=== PATIENT | female | born 1995 ===

== ENCOUNTER 2017-05-03 19:39 | Emergency (ER) | payer BC ==
[~2017-05-03] VITALS: Ht 167.6 cm; Wt 85.0 kg
[2017-05-03 22:15] VITALS: TEMP 96.7
[2017-05-04 00:33] VITALS: BP 93/63
[2017-05-04 01:00] VITALS: PULSE 73
== END 2017-05-04 00:56 | disposition home or self-care (01) ==
LOC: COL.ER 19:39
DX: S09.90XA Unspecified injury of head, initial encounter (principal); F10.129 Alcohol abuse with intoxication, unspecified; Z32.02 Encounter for pregnancy test, result negative; W08.XXXA Fall from other furniture, initial encounter; W01.198A Fall on same level from slipping, tripping and stumbling with subsequent striking against other object, initial encounter; Y90.8 Blood alcohol level of 240 mg/100 ml or more
CPT/HCPCS: J2405; J7030